=== PATIENT | female | born 1945 | race Caucasian/White ===

== ENCOUNTER 2019-01-27 14:46 | Emergency (ER) | payer OTHER ==
--- OUTSIDE RECORDS SUMMARY | 2019-01-27 14:52 | XMS REPORT | Clinical Summary ---
:1945 Author Organization [facility] Address [address] [place] [address] Care Team Providers Name Role Phone Karl Neves MD Primary Care Provider Allergies Not on File Medications Not on file Active Problems Not on file Encounters Date Type Specialty Care Team Description 10/07/2018 Hospital Encounter Radiology Karl Neves, Left foot pain 10/07/2018 Transcribe Orders Access Karl Neves Left foot pain ( Primary MD Dx) after 01/26/2018 Social History Tobacco Use Types Packs/Day Years Used Date Never Assessed Sex Assigned at Date Recorded Not on file Job Start Date Occupation Industry Not on file Not on file Not on file Travel History Travel Start Travel End No recent travel history available. Last Filed Vital Signs Not on file Plan of Treatment Health Maintenance Due Date Last Done Comments COLONOSCOPY SCREENING 11/07/1995 SHINGLES VACCINES (#1) 11/07/1995 65+ PNEUMOCOCCAL VACCINE (1 of 2 - 2010 PCV13) INFLUENZA VACCINE 02/05/2019 BREAST CANCER SCREENING 01/24/2020 01/23/2018, 06/07/2016, 04/09/2014, Additional history exists Procedures Procedure Name Priority Date/Time Associated Diagnosis Comments XR FOOT 3+ VW LEFT Routine 10/07/2018 10:23 AM Left foot pain Results for this CDT procedure are in the results section. after 01/26/2018 Results XR Foot 3+ Vw Left (10/07/2018 10:23 AM CDT) Specimen Narrative Performed At EXAMINATION:XR FOOT 3VW LEFT [facility] CLINICAL HISTORY:M79.672 Pain in left foot, m79.672 COMPARISON:None IMPRESSION: No acute left foot fracture or dislocation. No radiopaque foreign bodies or soft tissue swelling. Well-corticated calcific density lateral to the base of the first and second proximal phalanges likely sequela of prior ligamentous injury/plantar plate injury/turf toe. Achilles tendon enthesopathy. Tiny plantar calcaneal heel spur. Mild scattered degenerative changes at the forefoot, midfoot and hindfoot. I personally reviewed the images and the resident's findings and agree with the final report. [id number] Procedure Note Interface, Radiology Results Incoming - 10/07/2018 4:41 PM CDT EXAMINATION: XR FOOT 3 VW LEFT CLINICAL HISTORY: M79.672 Pain in left foot, m79.672 COMPARISON: None IMPRESSION: No acute left foot fracture or dislocation. No radiopaque foreign bodies or soft tissue swelling. Well-corticated calcific density lateral to the base of the first and second proximal phalanges likely sequela of prior ligamentous injury/plantar plate injury/turf toe. Achilles tendon enthesopathy. Tiny plantar calcaneal heel spur. Mild scattered degenerative changes at the forefoot, midfoot and hindfoot. I personally reviewed the images and the resident's findings and agree with the final report. [id number] Performing Organization Address City/State/Zipcode Phone Number [facility] [phone] [place] [address] after 01/26/2018 Insurance Payer Benefit Plan / Subscriber ID Effective Dates Phone Address Type Group HUMANA MEDICARE HUMANA MEDICARE xxxxxxxxx 2018-Present PPO PPO/PFFS/ERS [facility] Advance Directives Patient has advance care planning documents on file. For more information, please contact:[id number] [place] [address]
[2019-01-27 15:30] LABS: Absolute Lymphocytes (CBC) 1.9 K/uL (0.7-4.9); Basophils % 0.3 % (0-1.3); Hematocrit 41.7 % (36.0-45.0); Lymphocytes % 32.2 % (15.3-44.8); MPV 7.5 fL (7.6-11.3)
[2019-01-27 15:54] LABS: Albumin 3.6 g/dL (3.4-5.0); Bilirubin Direct 0.2 mg/dL (0-0.2); Bilirubin Total 0.7 mg/dL (0.2-1.0)
[2019-01-27] MEDS ORDERED: ONDANSETRON 4 MG/2 ML VIAL ONE (16:08)
[2019-01-27] MEDS ORDERED: CIPROFLOXACIN 400mg IV 400 MG/200 ML BAG IV ONE (16:08)
[2019-01-27] MEDS ORDERED: NA CHLORIDE 0.9% 1,000 ML ONE (16:08)
[2019-01-27] MEDS ORDERED: FENTANYL CITR 100 MCG/2 ML ONE (16:08)
--- NOTE | 2019-01-27 16:36 | RAD REPORT ---
EXAM DESCRIPTION: CT - Abdomen Pelvis W Contrast - 01/27/2019 4:24 pm CLINICAL HISTORY: Abdominal pain, cramping and diarrhea, prior cholecystectomy and hysterectomy COMPARISON: None. TECHNIQUE: Biphasic, helical CT imaging of the abdomen and pelvis was performed following 100 ml non -ionic IV contrast. No oral contrast. All CT scans are performed using dose optimization technique as appropriate and may include automated exposure control or mA/KV adjustment according to patient size. FINDINGS: No suspicious findings in the lung bases. The liver, spleen, and pancreas show no suspicious findings. Liver is borderline to mildly fatty infi ltrated. Gallbladder is absent. Biliary tree is dilated to 13 mm. This is slightly greater than typic ally seen for a post cholecystectomy patient. Significance is doubtful in the absence of any clinical or laboratory findings for biliary obstruction. Extrahepatic biliary tree is 12-13 mm. Symmetric renal function is seen with no hydronephrosis or suspicious renal mass. No pyelonephritis o r acute parenchymal process. No bladder abnormalities. No adrenal abnormalities. Uterus is absent mat hailey surgical history. Ovaries are absent or atrophic. No gastric dilatation or wall thickening. No dilated large or small bowel. Sierra of the cecum and asc ending colon are mildly prominent. Assessment is limited due to the absence of contrast or bowel cont ent within the lumen. Hyperdensity within the cecum and ascending colon is probably from medication. Right-sided colitis is not excluded. No stranding in the adjacent fat. Patient has a few small mesent shona lymph nodes present. Appendicitis is not suspected. There is prominent sigmoid diverticulosis wi thout diverticulitis. No free air or pneumatosis. Trace amount of free fluid layers in the dependent portion of the pelvis. No hernia, mass or bulky lymphadenopathy. No suspicious bony findings. IMPRESSION: No bowel obstruction, free air or surgically emergent finding. Sierra of the right side colon are prominent and may reflect a nonspecific colitis. Colon mass is unli jake but CT imaging is limited due to absence bowel content. Prominent sigmoid diverticulosis without diverticulitis. Status post cholecystectomy with dilation of the biliary tree. The dilation is believed to be physiol ogic. Biliary obstruction is not suspected without clinical or laboratory supporting findings.
--- NOTE | 2019-01-27 16:43 | EDPHYS ---
Physician Documentation [facility] Name: Deirdre Crawford Age: 73 yrs Sex: Female : 1945 Arrival Date: 01/27/2019 Time: 14:47 Bed 26 Private MD: ED Physician Gavin Gilbert HPI: 01/27 15:35 This 73 yrs old Female presents to ER via Ambulatory with complaints of snw Abdominal Pain, Diarrhea. 15:35 The patient presents with abdominal pain right lower quadrant, in the left lower snw quadrant. Onset: The symptoms/episode began/occurred suddenly, 3 day(s) ago. The symptoms do not radiate. Associated signs and symptoms: Pertinent positives: diarrhea. The symptoms are described as crampy. Severity of pain: At its worst the pain was moderate. The patient has not experienced similar symptoms in the past. The patient has not recently seen a physician, Sees PCP in [place]. Historical: - PSHx: 15:28 Cholecystectomy; Hysterectomy; mg2 - Immunization history:: Adult Immunizations up to date. - Social history:: Smoking status: Patient/guardian denies using tobacco. - Ebola Screening: : Patient denies exposure to infectious person Patient denies travel to an Ebola-affected area in the 21 days before illness onset. ROS: 15:35 Constitutional: Negative for fever, chills, and weight loss, Eyes: Negative for injury, snw pain, redness, and discharge, ENT: Negative for injury, pain, and discharge, Neck: Negative for injury, pain, and swelling, Cardiovascular: Negative for chest pain, palpitations, and edema, Respiratory: Negative for shortness of breath, cough, wheezing, and pleuritic chest pain, Back: Negative for injury and pain, : Negative for injury, bleeding, discharge, and swelling, MS/Extremity: Negative for injury and deformity, Skin: Negative for injury, rash, and discoloration, Neuro: Negative for headache, weakness, numbness, tingling, and seizure. 15:35 Abdomen/GI: Positive for abdominal pain, diarrhea, flatulence. Exam: 15:35 Head/Face: Normocephalic, atraumatic. Eyes: Pupils equal round and reactive to light, snw extra-ocular motions intact. Lids and lashes normal. Conjunctiva and sclera are non-icteric and not injected. Cornea within normal limits. Periorbital areas with no swelling, redness, or edema. ENT: Nares patent. No nasal discharge, no septal abnormalities noted. Tympanic membranes are normal and external auditory canals are clear. Oropharynx with no redness, swelling, or masses, exudates, or evidence of obstruction, uvula midline. Mucous membranes moist. Neck: Trachea midline, no thyromegaly or masses palpated, and no cervical lymphadenopathy. Supple, full range of motion without nuchal rigidity, or vertebral point tenderness. No Meningismus. Chest/axilla: Normal chest wall appearance and motion. Nontender with no deformity. No lesions are appreciated. Cardiovascular: Regular rate and rhythm with a normal S1 and S2. No gallops, murmurs, or rubs. Normal PMI, no JVD. No pulse deficits. Respiratory: Lungs have equal breath sounds bilaterally, clear to auscultation and percussion. No rales, rhonchi or wheezes noted. No increased work of breathing, no retractions or nasal flaring. Back: No spinal tenderness. No costovertebral tenderness. Full range of motion. Skin: Warm, dry with normal turgor. Normal color with no rashes, no lesions, and no evidence of cellulitis. MS/ Extremity: Pulses equal, no cyanosis. Neurovascular intact. Full, normal range of motion. Neuro: Awake and alert, GCS 15, oriented to person, place, time, and situation. Cranial nerves II-XII grossly intact. Motor strength 5/5 in all extremities. Sensory grossly intact. Cerebellar exam normal. Normal gait. Psych: Awake, alert, with orientation to person, place and time. Behavior, mood, and affect are within normal limits. 15:35 Constitutional: The patient appears alert, awake, anxious, smells of ketones, uncomfortable. 15:35 Abdomen/GI: Inspection: abdomen appears normal, Bowel sounds: normal, in all quadrants, Palpation: moderate abdominal tenderness, in the right lower quadrant and left lower quadrant. Vital Signs: 14:58 BP 164 / 74; Pulse 84; Resp 17; Temp 98.2(TE); Pulse Ox 100% on R/A; Pain 5/10; ss 17:39 BP 140 / 70; Pulse 88; Resp 18; Temp 98; Pulse Ox 100% on R/A; Pain 0/10; mg2 MDM: 15:17 Patient medically screened. snw 16:43 Data reviewed: vital signs, nurses notes. Data interpreted: Pulse oximetry: on room air snw is 100 %. Interpretation: normal. Response to treatment: the patient's symptoms have markedly improved after treatment. 01/27 15:08 Order name: Basic Metabolic Panel; Complete Time: 16:03 mg2 01/27 15:08 Order name: CBC with Diff; Complete Time: 15:45 mg2 01/27 15:08 Order name: Creatinine for Radiology; Complete Time: 16:03 mg2 01/27 15:08 Order name: Hepatic Function; Complete Time: 16:03 mg2 01/27 15:08 Order name: Lipase; Complete Time: 16:03 mg2 01/27 15:14 Order name: Urine Dipstick--Ancillary (enter results); Complete Time: 17:17 bd 01/27 15:34 Order name: CT Abd/Pelvis - IV Contrast Only; Complete Time: 16:38 snw 01/27 15:34 Order name: Urine Culture snw 01/27 15:08 Order name: IV Saline Lock; Complete Time: 15:30 mg2 01/27 15:08 Order name: Labs collected and sent; Complete Time: 15:30 mg2 Administered Medications: 15:50 Drug: NS 0.9% 500 ml Route: IV; Rate: bolus; Site: right antecubital; rv 17:00 Follow up: Response: No adverse reaction; IV Status: Completed infusion; IV Intake: mg2 500ml 15:50 Drug: Zofran 4 mg Route: IVP; Site: right antecubital; rv 16:59 Follow up: Response: No adverse reaction; Marked relief of symptoms mg2 15:50 Drug: fentaNYL (PF) 25 mcg Route: IVP; Site: right antecubital; rv 16:59 Follow up: Response: No adverse reaction; Marked relief of symptoms mg2 15:55 Drug: Cipro 400 mg Volume: 200 ml; Route: IVPB; Infused Over: 60 mins; Site: right rv antecubital; 17:38 Follow up: Response: No adverse reaction; IV Status: Completed infusion mg2 16:14 Drug: NS 0.9% 1000 ml Route: IV; Rate: 125 ml/hr; Site: right antecubital; mg2 17:38 Follow up: Response: No adverse reaction; IV Status: Order to discontinue infusion; IV mg2 Intake: 200ml 17:00 Drug: Bentyl 20 mg Route: PO; mg2 17:38 Follow up: Response: No adverse reaction; Marked relief of symptoms mg2 Disposition: 01/28 06:23 Co-signature as Attending Physician, Gavin Gilbert MD I agree with the assessment and kdr plan of care. Disposition: 01/27/19 16:41 Discharged to Home. Impression: Noninfective gastroenteritis and colitis, unspecified. - Condition is Stable. - Discharge Instructions: Food Choices to Help Relieve Diarrhea, Adult, Diarrhea, Adult, Rehydration, Elderly, Colitis. - Prescriptions for Zofran 4 mg Oral Tablet - take 1 tablet by ORAL route every 12 hours As needed; 20 tablet. Cipro 500 mg Oral Tablet - take 1 tablet by ORAL route every 12 hours for 7 days; 14 tablet. - Medication Reconciliation Form, Thank You Letter, Antibiotic Education, Prescription Opioid Use form. - Follow up: Private Physician; When: 2 - 3 days; Reason: Recheck today's complaints, Continuance of care, Re-evaluation by your physician. Follow up: Emergency Department; When: As needed; Reason: Worsening of condition. Signatures: Dispatcher [employer] EDME Gavin Gilbert MD MD [facility] Kimberly Thakkar, DINKEY DRIVER-C DINKEY DRIVER-Csnw Deanne Hoskins RN RN ss Malik Godfrey RN RN mg2 Dillon Orr, KAMI RN rv Corrections: (The following items were deleted from the chart) 01/27 17:40 16:41 01/27/2019 16:41 Discharged to Home. Impression: Noninfective gastroenteritis and mg2 colitis, unspecified. Condition is Stable. Forms are Medication Reconciliation Form, Thank You Letter, Antibiotic Education, Prescription Opioid Use. Follow up: Private Physician; When: 2 - 3 days; Reason: Recheck today's complaints, Continuance of care, Re-evaluation by your physician. Follow up: Emergency Department; When: As needed; Reason: Worsening of condition. snw
--- NOTE | 2019-01-27 16:43 | ER ---
Nurse's Notes [facility] Name: Deirdre Crawford Age: 73 yrs Sex: Female : 1945 Arrival Date: 01/27/2019 Time: 14:47 Bed 26 Private MD: Diagnosis: Noninfective gastroenteritis and colitis, unspecified Presentation: 01/27 14:48 Transition of care: patient was not received from another setting of care. Risk ss Assessment: Do you want to hurt yourself or someone else? Patient reports no desire to harm self or others. Initial Sepsis Screen: Does the patient meet any 2 criteria? No. Patient's initial sepsis screen is negative. Does the patient have a suspected source of infection? No. Patient's initial sepsis screen is negative. Care prior to arrival: None. 14:48 Method Of Arrival: Ambulatory ss 14:48 Acuity: DEANGELO 3 ss 14:48 Presenting complaint: Patient states: Abdominal cramping and diarrhea x 2 days. Onset ss of symptoms was January 25, 2019. Historical: - PSHx: 15:28 Cholecystectomy; Hysterectomy; mg2 - Immunization history:: Adult Immunizations up to date. - Social history:: Smoking status: Patient/guardian denies using tobacco. - Ebola Screening: : Patient denies exposure to infectious person Patient denies travel to an Ebola-affected area in the 21 days before illness onset. Screenin:26 Abuse screen: Denies threats or abuse. Denies injuries from another. Nutritional mg2 screening: No deficits noted. Tuberculosis screening: No symptoms or risk factors identified. Fall Risk IV access (20 points). Assessment: 15:20 General: Appears in no apparent distress. comfortable, Behavior is calm, cooperative. mg2 Pain: Complains of pain in abdomen Pain does not radiate. Pain currently is 3 out of 10 on a pain scale. Quality of pain is described as crampy, Pain began 1 day ago. Is intermittent. Neuro: Level of Consciousness is awake, alert, obeys commands, Oriented to person, place, time, situation. Cardiovascular: Capillary refill < 3 seconds Patient's skin is warm and dry. Respiratory: Airway is patent Respiratory effort is even, unlabored, Respiratory pattern is regular, symmetrical. GI: Bowel sounds present X 4 quads. Abd is soft and non tender Reports lower abdominal pain, diarrhea. : No signs and/or symptoms were reported regarding the genitourinary system. EENT: No signs and/or symptoms were reported regarding the EENT system. Derm: Skin is intact, is healthy with good turgor, Skin is pink, warm \T\ dry. normal. Musculoskeletal: Circulation, motion, and sensation intact. Capillary refill < 3 seconds. Vital Signs: 14:58 BP 164 / 74; Pulse 84; Resp 17; Temp 98.2(TE); Pulse Ox 100% on R/A; Pain 5/10; ss 17:39 BP 140 / 70; Pulse 88; Resp 18; Temp 98; Pulse Ox 100% on R/A; Pain 0/10; mg2 ED Course: 14:47 Patient arrived in ED. ss 14:48 Triage completed. ss 14:48 Arm band placed on right wrist. ss 14:57 Malik Godfrey, KAMI is Primary Nurse. mg2 15:08 Kimberly Thakkar FNP-C is PHCP. snw 15:08 Gavin Gilbert MD is Attending Physician. snw 15:27 No provider procedures requiring assistance completed. Inserted saline lock: 20 gauge mg2 in right antecubital area, using aseptic technique. Blood collected. 15:31 Patient has correct armband on for positive identification. mg2 15:39 Radiology exam delayed due to lab results not completed at this time. (BUN/Creatinine). kw1 16:24 CT Abd/Pelvis - IV Contrast Only In Process Unspecified. EDMS 17:39 IV discontinued, intact, bleeding controlled, No redness/swelling at site. Pressure mg2 dressing applied. Administered Medications: 15:50 Drug: NS 0.9% 500 ml Route: IV; Rate: bolus; Site: right antecubital; rv 17:00 Follow up: Response: No adverse reaction; IV Status: Completed infusion; IV Intake: mg2 500ml 15:50 Drug: Zofran 4 mg Route: IVP; Site: right antecubital; rv 16:59 Follow up: Response: No adverse reaction; Marked relief of symptoms mg2 15:50 Drug: fentaNYL (PF) 25 mcg Route: IVP; Site: right antecubital; rv 16:59 Follow up: Response: No adverse reaction; Marked relief of symptoms mg2 15:55 Drug: Cipro 400 mg Volume: 200 ml; Route: IVPB; Infused Over: 60 mins; Site: right rv antecubital; 17:38 Follow up: Response: No adverse reaction; IV Status: Completed infusion mg2 16:14 Drug: NS 0.9% 1000 ml Route: IV; Rate: 125 ml/hr; Site: right antecubital; mg2 17:38 Follow up: Response: No adverse reaction; IV Status: Order to discontinue infusion; IV mg2 Intake: 200ml 17:00 Drug: Bentyl 20 mg Route: PO; mg2 17:38 Follow up: Response: No adverse reaction; Marked relief of symptoms mg2 Intake: 17:00 IV: 500ml; Total: 500ml. mg2 17:38 IV: 200ml; Total: 700ml. mg2 Outcome: 16:41 Discharge ordered by . sngary 17:40 Discharged to home ambulatory, with family. mg2 17:40 Condition: stable 17:40 Discharge instructions given to patient, family, Instructed on discharge instructions, follow up and referral plans. medication usage, Demonstrated understanding of instructions, follow-up care, medications, Prescriptions given X 2. 17:40 Patient left the ED. mg2 Signatures: Dispatcher [employer] EDMS Kimberly Thakkar, SANDWICH BOARD CARRIER-C SANDWICH BOARD CARRIER-Csnw Deanne Hoskins RN RN Mohini Jason kw1 Malik Godfrey RN RN mg2 Dillon Orr RN RN rv
[2019-01-27 16:59] LABS: Urine Blood 2+ (NEG); Urine Glucose NEGATIVE (NEG); Urine Protein NEGATIVE (NEG); Urine Specific Gravity 1.025 (1.005-1.030)
[2019-01-27] MEDS ORDERED: DICYCLOMINE HCL 10 MG CAP ONE (17:12)
[2019-01-27 17:57] VITALS: O2SAT 100
[2019-01-27 17:59] VITALS: BP 140/70; TEMP 98
== END 2019-01-27 17:40 | disposition home or self-care (01) ==
LOC: ER 14:46
DX: K52.9 Noninfective gastroenteritis and colitis, unspecified (principal)
CPT/HCPCS: 87088; 85025; 87086; 80048; 36415; 80076; 81003; 83690; 74177; Q9967; J3010; J7030; J2405; J0744; 96365; 96366; 96375; 99284